=== PATIENT | female | born 1995 | race African-American/Black ===

== ENCOUNTER 2018-04-24 12:06 | Emergency (ER) | payer BC ==
[~2018-04-24] VITALS: Ht 175.3 cm; Wt 83.3 kg
[2018-04-24 12:31] VITALS: BP 151/90
== END 2018-04-24 14:02 | disposition home or self-care (01) ==
LOC: ED 14:00
DX: B00.1 Herpesviral vesicular dermatitis (principal)
CPT/HCPCS: 99283

== ENCOUNTER 2019-08-09 16:11 | Emergency (ER) | payer SELFPAY ==
[~2019-08-09] VITALS: Ht 177.8 cm; Wt 83.4 kg
[2019-08-09 16:21] VITALS: BP 146/102
== END 2019-08-09 17:09 | disposition left against medical advice (07) ==
LOC: ED 17:00
DX: K04.7 Periapical abscess without sinus (principal); Z53.21 Procedure and treatment not carried out due to patient leaving prior to being seen by health care provider

== ENCOUNTER 2019-08-11 09:19 | Emergency (ER) | payer SELFPAY ==
[~2019-08-11] VITALS: Ht 177.8 cm; Wt 81.0 kg
--- NOTE | 2019-08-11 09:55 | NUR ---
[employer]ALES MARKETING MANAGER: PT TO ROOM FROM [facility]ILL [facility]
--- NOTE | 2019-08-11 10:30 | NUR ---
ASSUMED CARE OF PT AT THIS TIME. THIS IS A 23 YO FEMALE WHO PRESENTS TO THE ER C/O SORES TO THE RIGHT OF HER MOUTH X WEEKS AND SWELLING IN HER FACE AND BLE THAT SHE'S NOTICED SINCE 08/01 OR 08/02. BLE SWELLING 1 OR 2+ AND NONPITTING. NO WEEPING OR OPEN SORES NOTED. PT DENIES ANY PMH APART FROM COLD SORES AND ADENOIDECTOMY. PT POOR HISTORIAN AND VAGUE INCOMPLAINTS. PT STATES "I'VE BEEN ON ANTIBIOTICS AND STEROIDS BUT I'M NOT SURE WHY, FOR SOME INFECTION". PT ON CONT BP AND O2 MONITORS. CALL LIGHT WITHIN REACH. WILL CONT TO MONTIOR PT.
--- NOTE | 2019-08-11 11:11 | NUR ---
US AT BEDSIDE AT THIS TIME. PT AO X 4. SKIN WARM AND DRY. RESP EVEN AND UNLABORED. NO ACUTE DISTRESS NOTED AT THIS TIME. PT ON CONT BP AND O2 MONITORS. CALL LIGHT WITHIN REACH. WILL CONT TO MONITOR PT.
[2019-08-11 12:06] LABS: MEAN CORPUSCULAR HEMOGLOBIN 28.4 pg (27.0-34.8); MEAN CORPUSCULAR HGB CONC 32.3 g/dL (32.4-35.8); MEAN CORPUSCULAR VOLUME 87.8 fL (80-100); MEAN PLATELET VOLUME 7.2 fL (7.4-10.4); PLATELET COUNT 354 x10^3/uL (130-400); RED BLOOD COUNT 3.78 x10^6/uL (3.82-5.3); RED CELL DISTRIBUTION WIDTH 15.3 % (9.6-15.2)
[2019-08-11 12:17] LABS: ANION GAP 8 mmol/L (5-15); CALCIUM 8.6 mg/dL (8.5-10.1); CHLORIDE 110 mmol/L (98-107); CREATININE 0.95 mg/dL (0.55-1.02)
--- NOTE | 2019-08-11 12:30 | NUR ---
PT CURRENTLY RESTING ON GURNEY. NAD NOTED. SKIN WARM AND DRY. RESP EVEN AND UNLABORED. PT DENIES ANY PAIN/NEEDS AT THIS TIME. PT AWARE WE ARE WAITING FOR LAB/IMAGING RESULTS. CALL LIGHT WITHIN REACH. WILL CONT TO MONITOR PT.
[2019-08-11 12:36] LABS: BASOPHILS # (AUTO) 0.06 x10^3/uL (0-0.1); BASOPHILS % (AUTO) 1 % (0-1); EOSINOPHILS # (AUTO) 0.08 x10^3/uL (0-0.4); EOSINOPHILS % (AUTO) 2 % (1-7); LYMPHOCYTES # (AUTO) 2.41 x10^3/uL (1-3.4); LYMPHOCYTES % (AUTO) 41 % (22-44); MD SCAN; MONOCYTES # (AUTO) 0.31 x10^3/uL (0.2-0.8); MONOCYTES % (AUTO) 5 % (2-9); NEUTROPHILS # (AUTO) 2.95 x10^3/uL (1.8-6.8); NEUTROPHILS % (AUTO) 51 % (42-75)
[2019-08-11 13:17] VITALS: BP 166/101
== END 2019-08-11 13:19 | disposition home or self-care (01) ==
LOC: ED 12:27
DX: R60.0 Localized edema (principal); D64.9 Anemia, unspecified; L01.01 Non-bullous impetigo; J44.9 Chronic obstructive pulmonary disease, unspecified; I11.0 Hypertensive heart disease with heart failure; I50.9 Heart failure, unspecified
CPT/HCPCS: 36415; 80048; 83880; 85025; 93970; 99284

== ENCOUNTER 2019-08-27 12:00 | Emergency (ER) | payer OTHER ==
[~2019-08-27] VITALS: Ht 175.3 cm; Wt 76.8 kg
--- NOTE | 2019-08-27 12:13 | NUR ---
CONTACT W/ PT. THIS IS A 24 YO F BIB [facility] W/ C/O DOG BITE ON LT THIGH AND RT WRIST X2 DAYS AGO CAUSING PAIN AND SWELLING. TACHYCARDIC, OTHER VS WDL. AT BEDSIDE FOR EVAL. PT IS RESTING ON GURNEY IN GOWN, CONNECTED TO MONITORING W/ CALL LIGHT IN REACH. AWAITING ORDERS.
[2019-08-27] MEDS ORDERED: DIPH,PERTUSS(ACELL),TET VAC/PF 0.5 ML IM-VACC ONE ×2 (12:18→12:30)
[2019-08-27] MEDS ORDERED: AMOXICILLIN/CLAV 875-125MG TABLET ONE (12:18)
--- NOTE | 2019-08-27 12:24 | NUR ---
PT MEDICATED PER EMAR.
[2019-08-27] MEDS ORDERED: AMOXICILLIN/CLAV 875-125MG TABLET PO ONE (12:30)
--- NOTE | 2019-08-27 12:31 | NUR ---
PT TO RAD.
--- NOTE | 2019-08-27 13:01 | NUR ---
WOUNDS IRRIGATED AND DRESSED W/ OPTIFOAM. ALL TESTS RESULTED. PT IS UP FOR RECHECK AT THIS TIME.
--- NOTE | 2019-08-27 13:26 | NUR ---
CARE FOR DC PROVIDED: PT LAYING ON GURNEY, SLEEPING, AROUSES TO NAME. NO IV TO DC. REVIEWED DC INSTRUCTIONS WITH PT. UNDERSTANDING VERBALIZED.
[2019-08-27 13:27] VITALS: BP 143/96
--- NOTE | 2019-08-27 13:46 | NUR ---
PT NEEDING "PANTS. THEY CUT THEM OFF OF ME TO LOOK AT THE WOUND" ATTEMPTING TO FIND CLOTHING FOR PT.
--- NOTE | 2019-08-27 14:04 | NUR ---
AKSHTA BROUGHT INTO ROOM BY VP PATIENT FOR PT.
== END 2019-08-27 14:10 | disposition home or self-care (01) ==
LOC: ED 12:33
DX: S60.871A Other superficial bite of right wrist, initial encounter (principal); S70.372A Other superficial bite of left thigh, initial encounter; J44.9 Chronic obstructive pulmonary disease, unspecified; Z90.89 Acquired absence of other organs; W54.0XXA Bitten by dog, initial encounter; Y93.89 Activity, other specified; Y92.488 Other paved roadways as the place of occurrence of the external cause; Y99.8 Other external cause status
CPT/HCPCS: 90471; 90715; 99284

== ENCOUNTER 2019-08-31 17:56 | Emergency (ER) | payer SELFPAY ==
[~2019-08-31] VITALS: Ht 175.3 cm; Wt 75.6 kg
[2019-08-31 17:59] VITALS: BP 124/91
== END 2019-08-31 19:00 | disposition home or self-care (01) ==
LOC: ED 18:55
DX: S61.551D Open bite of right wrist, subsequent encounter (principal); S71.152D Open bite, left thigh, subsequent encounter; Z48.00 Encounter for change or removal of nonsurgical wound dressing; X58.XXXA Exposure to other specified factors, initial encounter
CPT/HCPCS: 99283